=== PATIENT | female | born 1990 | race Caucasian/White ===

== ENCOUNTER 2017-12-20 21:01 | Emergency (ER) | payer OTHER, MEDICAID ==
[~2017-12-20] VITALS: Ht 172.7 cm; Wt 61.2 kg
[~2017-12-20 21:01] MED LIST: NOHOMEMEDICATIONS
[2017-12-20] MEDS ORDERED: KEFLEX500 M1 PO (21:12)
[2017-12-20] MEDS ORDERED: NORCO 5-325 TA1 EACH PO (21:12)
[2017-12-20 22:18] VITALS: BP 128/85
== END 2017-12-20 22:20 | disposition home or self-care (01) ==
LOC: M.ERS 21:01
DX: S51.801A Unspecified open wound of right forearm, initial encounter (principal); W34.09XA Accidental discharge from other specified firearms, initial encounter; Y93.89 Activity, other specified; Y92.89 Other specified places as the place of occurrence of the external cause; Y99.8 Other external cause status